=== PATIENT | female | born 1985 | race Caucasian/White ===

== ENCOUNTER 2021-05-13 11:39 | Emergency (ER) | payer SELFPAY ==
[2021-05-13] MEDS ORDERED: Ondansetron ODT 4 MG TAB ONE (12:17)
[2021-05-13] MEDS ORDERED: HYDROcodone/Acetaminophen 5/325 mg Tablet ONE (12:17)
[2021-05-13] MEDS ORDERED: Lidocaine 1% (PF) 30 ML VIAL ONE (12:17)
[2021-05-13] MEDS ORDERED: Ketorolac Tromethamine 60 MG/2 ML VIAL ONE (12:17)
[2021-05-13] MEDS ORDERED: cefTRIAXone\\ROCEPHIN 1 GM VIAL ONE (12:17)
== END 2021-05-13 12:55 | disposition home or self-care (01) ==
LOC: MADERS 11:39
DX: H66.92 Otitis media, unspecified, left ear (principal); F17.210 Nicotine dependence, cigarettes, uncomplicated
CPT/HCPCS: 96372; 99283; J0696; J1885; J2001; Q0162

== ENCOUNTER 2022-11-27 14:36 | Emergency (ER) | payer SELFPAY | END 2022-11-27 15:45 | disposition home or self-care (01) | LOC: MADERS 14:36 | DX: J01.90 Acute sinusitis, unspecified (principal); L04.0 Acute lymphadenitis of face, head and neck; B37.0 Candidal stomatitis | CPT/HCPCS: 99283 ==